=== PATIENT | male | born 1980 | race Caucasian/White ===

== ENCOUNTER → 2020-01-31 10:03 | Outpatient (CLI) | payer OTHER, SELFPAY ==
[2019-02-24 12:41] VITALS: BMI 29.5
== END ==
PROVIDERS: PCP Family Medicine; Referring Provider Physician Assistant; Visit Provider Physician Assistant
DX: Z20.828 Contact with and (suspected) exposure to other viral communicable diseases (principal)
CPT/HCPCS: 87635; C9803; U0003

== ENCOUNTER → 2020-02-24 | Outpatient (CLI) | payer OTHER, SELFPAY | END | disposition home or self-care (01) | LOC: LABSPEC 15:13 | PROVIDERS: PCP Family Medicine; Referring Provider Physician Assistant Surgical; Visit Provider Physician Assistant Surgical | DX: U07.1 COVID-19 (principal) | CPT/HCPCS: 87635; U0003 ==

== ENCOUNTER → 2020-05-29 07:14 | Outpatient (CLI) | payer OTHER, SELFPAY ==
[2020-05-29 10:18] LABS: Absolute Lymphocyte Count 1.45 X10^3/uL (0.83-4.51); Absolute Neutrophil Count 2.5 X10^3/uL (2.0-7.7); Basophil# 0.01 X10^3/uL; Basophil% 0.2 % (0-1); Eosinophil# 0.13 X10^3/uL; Eosinophils% 2.9 % (0-5); Hematocrit 42.6 % (40-54); Hemoglobin 13.6 g/dL (13.0-16.5); Lymphocyte # 1.45 X10^3/ul (4.0); Lymphocyte % 32.7 % (19-41); Mean Corp Hgb Conc 31.9 g/dL (32-36); Mean Corpuscular Hgb 29.8 pg (27.0-32.0); Mean Corpuscular Volume 93.4 fL (80-94); Mean Platelet Vol. 11.6 fl (6.2-12.0); Monocyte# 0.37 X10^3/uL; Monocyte% 8.3 % (0-10); NRBC Flagged by Analyzer 0 % (0-5); Neutrophil # 2.47 X10^3/uL (2.7-7.7); Neutrophil % 55.7 % (47-70); Platelet Count 236 K/mm3 (150-450); RBC Distribution Width CV 13.1 % (11.6-14.6); RBC Distribution Width SD 44.6 fl (35.1-43.9); Red Blood Count 4.56 M/mm3 (4.6-6.2); White Blood Count 4.4 K/mm3 (4.4-11.0)
[2020-05-29 10:52] LABS: ALB/GLOB Ratio 1.2 RATIO (0.9-2.4); AST(SGOT) 17 U/L (15-37); Alanine Aminotransfer ALT/SGPT 37 U/L (16-61); Alkaline Phosphatase 67 U/L (45-117); Anion Gap 5 (5-15); BUN 16 mg/dL (7-18); Calcium,Total 8.9 mg/dL (8.5-10.1); Chloride 107 mmol/L (98-107); Creatinine, Serum 0.94 mg/dL (0.70-1.30); EST Glomerular Filtration Rate 95 mL/min (>60); Est Glom Filt Rate - Afr Amer 115 mL/min (>60); Globulin 3.2 g/dL (2.2-4.2); Glucose 93 mg/dL (74-106); Potassium 4.5 mmol/L (3.5-5.1); Protein, Total 7.2 g/dL (6.4-8.2); Sodium Level 140 mmol/L (136-145)
[2020-05-29 11:07] LABS: T4 Free Direct 0.97 ng/dL (0.76-1.46); Thyroid Stim Hormone (TSH) 1.29 uIU/mL (0.358-3.74)
[2020-05-30 09:28] LABS: Thyroid Peroxidase AB < 9 IU/mL (0-34)
[2020-06-01 18:38] LABS: Thyroglobulin Antibody < 1.0 IU/mL (0.0-0.9)
== END ==
PROVIDERS: PCP Family Medicine; Referring Provider Family Medicine; Visit Provider Family Medicine
DX: E04.1 Nontoxic single thyroid nodule (principal)
CPT/HCPCS: 80053; 84439; 84443; 85025; 86376; 86800

== ENCOUNTER → 2020-05-29 09:59 | Outpatient (CLI) | payer OTHER, SELFPAY ==
[2019-02-24 12:41] VITALS: BMI 29.5
--- NOTE | 2020-05-29 10:01 | US_ITS ---
STUDY: THYROID ULTRASOUND REASON FOR EXAM: Male, 39 years old. Nodule TECHNIQUE: Ultrasound evaluation of the thyroid was performed with real-time and static worrell-scale imaging. COMPARISON: None. FINDINGS: RIGHT LOBE: The right lobe of the thyroid gland measures 4.7 x 2.0 x 1.5 cm. There is a homogeneous echotexture. There are no demonstrated solid, cystic or complex lesions. LEFT LOBE: The left lobe of the thyroid gland measures 4.5 x 2.0 x 1.3 cm. There is a homogeneous echotexture. Nodule 1:4 x 3 x 3 mm cystic anechoic wider than tall smoothly marginated nodule with a comet tail artifact (TR 1) consistent with a colloid cyst. ISTHMUS: The isthmus measures 3 mm thick. . The regional lymph nodes are normal. US/Thyroid IMPRESSION: Normal ultrasound examination of the thyroid. Electronically Signed: Kenneth Bynum MD at 10:02 EDT Tel , Service support ,
== END ==
PROVIDERS: PCP Family Medicine; Referring Provider Family Medicine; Visit Provider Family Medicine
DX: E04.1 Nontoxic single thyroid nodule (principal)
CPT/HCPCS: 76536

== ENCOUNTER 2020-11-28 19:25 | Emergency (ER) | payer OTHER, SELFPAY ==
[2020-11-28 19:26] VITALS: BP 132/81; PULSE 78; RESP 14; TEMP 35.6; O2SAT 100; BMI 27.3
--- NOTE | 2020-11-28 19:48 | EDS_ITS ---
HPI History of Present Illness Chief Complaint: Laceration Detail of Chief Complaint: Ration to left ring finger Informant: patient Narrative Narrative: Patient presents to the emergency department after sustaining a laceration to his left ring finger this evening. Patient states that he was using a butter knife to crush some ice in a plastic cup when the knife went through the cup and into his finger. Patient is right-hand dominant. Patient is unsure of his last tetanus shot. [facility] Medical History (Updated 11/28/20 @ 21:[address] Phoebe Hubbard, DO) Hay fever Pilonidal cyst Home Medications NK 02/24/20 [History Last Taken Unknown] Allergy/AdvReac Type Severity Reaction Status Date / Time Penicillins AdvReac Mild OTHER Verified 11/28/20 19:26 Social History (Updated 02/24/20 @ 12:15 by Paolo GOMEZ, JASON) Smoking Status: Never smoker alcohol intake: current ROS ROS ED Constitutional Constitutional ED: Reports systems reviewed and no addt'l complaints, except as documented; Denies body ache(s), change in weight or chills Eyes Eyes: Denies acute decrease in peripheral vision, change in vision, double vision or loss of vision ENT ENT ED: Reports none; Denies ear pain, lip swelling, loss taste/smell, neck pain, otalgia or sore throat Cardiovascular Cardiovascular: Reports none; Denies abdominal pain, chest pain with activity, leg edema, lightheadedness, palpitations, rapid heart rate or syncope Respiratory/Chest Respiratory/Chest: Reports none; Denies change in mental status, dry cough, dyspnea, hemoptysis, shortness of breath at rest or shortness of breath with exertion Gastrointestinal Gastrointestinal: Reports none; Denies abdominal pain, change in stool character, diarrhea, hematemesis, hematochezia, melena, rectal bleeding or vomiting Genitourinary Genitourinary ED: Reports none; Denies abdominal discomfort, anuria, dysuria, genital pain or polyuria Musculoskeletal Musculoskeletal: Reports none and other Details: Laceration to left ring finger ; Denies arthralgias, back pain, difficulty walking, extremity pain, muscle weakness or myalgias Integumentary Reports none; Denies abscess or rash Neurologic Neurologic: Reports none; Denies abnormal gait, confusion, focal weakness, frequent falls, headache(s), loss of vision, numbness, paresthesias, radicular pain, vertigo or weakness Psychiatric Psychiatric: Reports systems reviewed and no addt'l complaints, except as documented and none; Denies behavioral changes, confusion, difficulty concentrating, hallucinations, suicidal ideation, tactile hallucinations or visual hallucinations Endocrine Endocrinology: Denies none, cold intolerance, excessive sweating, fatigue or heat intolerance Hematologic/Lymphatic Hematologic/Lymphatic: Reports none; Denies anemia, easy bleeding or easy bruising Allergic/Immunologic Allergic/Immunologic ED: Denies as per HPI, none, lip swelling, mouth swelling, throat swelling, tongue swelling or hives EXAM Physical Exam Const Vital Signs: 11/28/20 19:26 Temperature 96.1 F L Temperature Source Temporal Pulse Rate 78 Respiratory Rate 14 Blood Pressure 132/81 H Blood Pressure Mean 98 Pulse Ox 100 Oxygen Delivery Method Room Air Positive well nourished and well developed General Appearance ED: well developed and NAD HEENT Reports TM's clear and moist mucous membranes normocephalic and atraumatic; Negative for trauma or tenderness Tympanic Membrane ED: Yes TM's clear Eyes PERRL and EOMs intact bilaterally General Eye ED: Negative for pale conjunctiva or scleral icterus Neck no lymphadenopathy, supple and no JVD General: Negative for tenderness Chest Wall inspection of chest normal and palpation of chest normal Chest: Negative for tenderness Resp normal respiratory effort and clear to auscultation bilaterally Effort and Inspection: Negative for respiratory distress or pain with movement Auscultation: Negative for rhonchi, wheezes or diminished lung sounds Cardio regular rate, regular rhythm, S1 normal heart sound, S2 normal heart sound and no murmurs Peripheral Pulses: pulses 2+ throughout GI normal to inspection, nondistended, normoactive bowel sounds, soft to palpation, non-tender, non-distended and no masses Back/Spine no CVA tenderness and no thoracic nor lumbar tenderness Extremity normal to inspection Extremity Narrative: Evaluation of the left ring finger reveals a 1 cm laceration over the dorsum of the PIP joint. Patient has normal flexion extension of the digit. Normal strength against resistance. Neurovascularly intact. General Extremety ED: Negative for edema General Extremity: Negative for edema Neuro oriented x3, CN's II-XII intact bilaterally, no sensory deficits noted and gait normal Sensorium / Orientation: awake, alert, oriented to person, oriented to place and oriented to time Motor Exam: strength 5/5 throughout and strength abnormal Psych mental status grossly normal Skin no rashes or lesions noted and no wounds PROC Procedures Lacerations Finger laceration: Length: 0.39 in Depth: Sub Q Shape: Linear Prep: Sterile Conditions and Shure-Clens Laceration repair: Lidocaine and Local Irrigated (ml): 50 Number of Sutures/Chelly: 2 Suture Information: Ethilon and Simple Discharge Plan Triage Chief Complaint: Laceration ED Provider: Phoebe Hubbard Dx/Rx/DC Orders Clinical Impression: Finger laceration Instructions: ED Laceration, Hand: All Closures Prescriptions: No Action NK RF: 0 Primary Care Provider: Jp Morley Referrals: Jp Morley MD [Primary Care Provider] - 10 Day for suture removal Disposition Disposition: Home, Self Care
[2020-11-28] MEDS: Diphth,Pertuss(Acell),Tet Vac 0.5 ML Vial IM (20:00)
[2020-11-28] MEDS: Lidocaine 1% (20 ml mdv) 20 ML Vial INFILT (20:01)
[2020-11-28 21:16] VITALS: BP 136/72; PULSE 69; RESP 15
== END 2020-11-28 21:17 | disposition home or self-care (01) ==
PROVIDERS: Emergency Provider Emergency Medicine; PCP Family Medicine
DX: S61.215A Laceration without foreign body of left ring finger without damage to nail, initial encounter (principal); W26.0XXA Contact with knife, initial encounter; Y93.89 Activity, other specified; Y92.9 Unspecified place or not applicable; Y99.9 Unspecified external cause status
CPT/HCPCS: 12001; 90471; 90715; 99283

== ENCOUNTER 2021-06-02 11:54 | Outpatient (CLI) | payer OTHER, SELFPAY ==
--- NOTE | 2021-06-02 11:57 | US_ITS ---
STUDY: THYROID ULTRASOUND REASON FOR EXAM: Male, 40 years old. THYROID NODULE TECHNIQUE: Ultrasound evaluation of the thyroid was performed with real-time and static worrell-scale imaging. COMPARISON: May 29, 2020 thyroid ultrasound. FINDINGS: RIGHT LOBE: The right lobe of the thyroid gland measures 4.6 x 1.6 x 1.8 cm. There is a homogeneous echotexture. There are no demonstrated solid, cystic or complex lesions. LEFT LOBE: The left lobe of the thyroid gland measures 4.5 x 1.7 x 1.6 cm. There is a homogeneous echotexture. There is a 3 x 3 x 3 mm small, hypoechoic nodule within the left side of the thyroid with a small calcification without significant vascularity. ISTHMUS: The isthmus measures . The regional lymph nodes are normal. US/Thyroid IMPRESSION: Stable left thyroid nodule likely benign. Recommend follow-up in 6-12 months to ensure stability. Electronically Signed: Heydi Hansen MD at 0:20 EDT ,
== END 2021-06-02 23:59 | disposition home or self-care (01) ==
LOC: US 11:55
PROVIDERS: PCP Family Medicine; Referring Provider Family Medicine; Visit Provider Family Medicine
DX: E04.1 Nontoxic single thyroid nodule (principal)
CPT/HCPCS: 76536

== ENCOUNTER → 2022-05-31 | Outpatient (CLI) | payer OTHER, SELFPAY ==
[2022-05-31 12:56] LABS: ALB/GLOB Ratio 1.2 RATIO (0.9-2.4); AST(SGOT) 17 U/L (15-37); Alanine Aminotransfer ALT/SGPT 32 U/L (16-61); Albumin, Serum 4.2 g/dL (3.2-5.0); Alkaline Phosphatase 66 U/L (45-117); Anion Gap 4 (5-15); BUN 18 mg/dL (7-18); BUN/Creat Ratio 18.6 RATIO (10-20); Calcium,Total 9.4 mg/dL (8.5-10.1); Chloride 106 mmol/L (98-107); Cholesterol 195 mg/dL (200); Creatinine, Serum 0.97 mg/dL (0.70-1.30); EST Glomerular Filtration Rate 91 mL/min (>60); Est Glom Filt Rate - Afr Amer 111 mL/min (>60); Globulin 3.5 g/dL (2.2-4.2); Glucose 100 mg/dL (74-106); High Density Lipoprotein 73 mg/dL; Potassium 5.1 mmol/L (3.5-5.1); Protein, Total 7.7 g/dL (6.4-8.2); Sodium Level 139 mmol/L (136-145); Thyroid Stim Hormone (TSH) 1.04 uIU/mL (0.358-3.74); Triglycerides 62 mg/dL; Very Low Density Lipoprotein 12 mg/dL (5-40)
== END | disposition home or self-care (01) ==
LOC: MFPLAB 09:18
PROVIDERS: PCP Family Medicine; Referring Provider Family Medicine; Visit Provider Family Medicine
DX: E04.1 Nontoxic single thyroid nodule (principal)
CPT/HCPCS: 36415; 80053; 80061; 84439; 84443

== ENCOUNTER → 2022-06-08 | Outpatient (CLI) | payer OTHER, SELFPAY ==
--- NOTE | 2022-06-08 16:56 | US_ITS ---
INDICATION: nodule- f/u EXAMINATION: Ultrasound US Thyroid (eg thyroid, parathyroid, parotid) TECHNIQUE: Hester scale and color doppler imaging was performed of the thyroid gland. COMPARISON: June 02, 2021, May 29, 2020. FINDINGS: RIGHT THYROID LOBE: 5.4 x 1.7 x 1.6 cm. Homogeneous echotexture with normal vascularity. [No thyroid nodules are present. LEFT THYROID LOBE: 4.5 x 1.8 x 1.5 cm. Homogeneous echotexture with normal vascularity. 5 x 3 x 3 mm mm lateral posterior mid thyroid cyst with hyperechoic inspissated colloid, TI-RAD 1, not significantly changed in size from May 29, 2020. [ ISTHMUS: 0.5 cm. No thyroid nodules are present. US/Thyroid IMPRESSION: Benign left thyroid colloid cyst without significant change from May 29 2020. No new or enlarging nodules. Diffuse thyromegaly. Electronically Signed: Roney Bernal MD at 18:43 EDT ,
== END | disposition home or self-care (01) ==
LOC: US 16:54
PROVIDERS: PCP Family Medicine; Referring Provider Family Medicine; Visit Provider Family Medicine
DX: E04.1 Nontoxic single thyroid nodule (principal)
CPT/HCPCS: 76536

== ENCOUNTER → 2023-06-07 | Outpatient (CLI) | payer OTHER, SELFPAY ==
[2023-06-07 10:42] LABS: Absolute Lymphocyte Count 1.45 X10^3/uL (0.83-4.51); Absolute Neutrophil Count 3.6 X10^3/uL (2.0-7.7); Basophil# 0.03 X10^3/uL; Basophil% 0.5 % (0-1); Eosinophil# 0.56 X10^3/uL; Eosinophils% 9.2 % (0-5); Hematocrit 42.7 % (40-54); Hemoglobin 14.5 g/dL (13.0-16.5); Lymphocyte # 1.45 X10^3/ul (0.83-4.51); Lymphocyte % 23.9 % (19-41); Mean Corpuscular Hgb 30.7 pg (27.0-32.0); Mean Corpuscular Volume 90.3 fL (80-94); Monocyte# 0.43 X10^3/uL; Monocyte% 7.1 % (0-10); NRBC Flagged by Analyzer 0 % (0-5); Neutrophil # 3.58 X10^3/uL (2.7-7.7); Neutrophil % 59.1 % (47-70); Platelet Count 249 K/mm3 (150-450); RBC Distribution Width CV 12.4 % (11.6-14.6); RBC Distribution Width SD 40.9 fl (35.1-43.9); Red Blood Count 4.73 M/mm3 (4.6-6.2); White Blood Count 6.1 K/mm3 (4.4-11.0)
[2023-06-07 11:30] LABS: ALB/GLOB Ratio 1.2 RATIO (0.9-2.4); AST(SGOT) 14 U/L (15-37); Alanine Aminotransfer ALT/SGPT 27 U/L (16-61); Albumin, Serum 4.1 g/dL (3.2-5.0); Alkaline Phosphatase 61 U/L (45-117); Anion Gap 3 (5-15); BUN 14 mg/dL (7-18); Calcium,Total 9.2 mg/dL (8.5-10.1); Chloride 108 mmol/L (98-107); Cholesterol 199 mg/dL (200); EST Glomerular Filtration Rate 88 mL/min (>60); Est Glom Filt Rate - Afr Amer 106 mL/min (>60); Globulin 3.5 g/dL (2.2-4.2); Glucose 94 mg/dL (74-106); High Density Lipoprotein 78 mg/dL; Potassium 4.6 mmol/L (3.5-5.1); Protein, Total 7.6 g/dL (6.4-8.2); Sodium Level 139 mmol/L (136-145); Thyroid Stim Hormone (TSH) 0.84 uIU/mL (0.358-3.74); Triglycerides 67 mg/dL; Very Low Density Lipoprotein 13 mg/dL (5-40)
== END | disposition home or self-care (01) ==
LOC: MFPLAB 08:57
PROVIDERS: PCP Family Medicine; Visit Provider Family Medicine
DX: E66.9 Obesity, unspecified (principal)
CPT/HCPCS: 36415; 80053; 80061; 84443; 85025

== ENCOUNTER 2023-09-05 13:00 | Outpatient (RCR) | payer OTHER, SELFPAY ==
--- NOTE | 2023-09-05 16:56 | HP.OTEVAL_ITS ---
Patient's Visit Information Visit Information Visit Information: PEDRITO MORRIS is a 42 year old M, referred to Occupational Therapy by Dr. Garry Mims MD, with a diagnosis of left fx of middle phalanx of left IF. Date of Evaluation: 09/05/23 Occupational Therapist: SCOTTY Alvraado/Jose, CHT Subjective Subjective: This 42 year old male was seen for OT eval with dx of left IF middle phalanx fx. pt states he fell when playing with his son outside. This happened on 08/13/23. pt states he went to get x ray on 08/14/23. Pt states he was in a splint to keep his finger straight so his finger was sore yesterday. Today better but still sore. pt would like a HEP to initiate ROM and guidelines on how healing process and return to normal use will go. Pain left IF: Current Pain Intensity: 0 Pain Intensity Range: 0 and 2 ROM MP: IF right 0/75 left 0/70 PIP: IF right 0/105 left 0/75 DIP: IF right 0/60 left 0/35 ROM Comments: pt demo with decrease in left IF ROM Strength Strength Comments: not test Edema PIP: right 6.5 left 7.0 Quick DASH-Disab of Arm,Shoulder& Hand Quick DASH Score: 5.0000 Goals Goal:ROM equal to unaffected hand: Yes Goal:No pain with affected hand use: Yes Goal:PIP Circumferences equal to unaffected hand: Yes Goal:Full use of affected hand in daily activities including work: Yes Rehabilitation General Assessment: pt demo with left IF limited ROM, swelling and newly healing structures. Pt demo need for skilled OT services to ed. on dx. and ROM ex. allowing for pt to initiate strengthening at 6 weeks s/p- pt to work on full ROM until then- use of beena tape with heavy work to avoid catching IF on stationary objects. As pt progresses was instructed if still limited with ROM at week 6 he can initiate PROM to get full composite flexion- therapist ed. pt that finger injuries do take time to heal and he will have swelling for 6 -9 months and will have some pain at end range of motion with tight fisting up to a year. Therapist advised with ex to not allow pain, to work in comfort ROM until he can actively reach full composite fist. pt demo understanding and agrees to HEP. Pt was given contact info of therapist if he has issues. pt agrees with one visit and HEP. Rehabilitation Potential: Excellent Anticipated Interventions Anticipated Interventions: A/AAROM/PROM, Joint Protection/Energy Conservation, Education re Diagnosis and Home Program Visit Plan TEXT: Thank you for the opportunity to evaluate your patient. For Medicare and Medicare HMO plans, please review the plan of care and approve it. It will need to be FAXED BACK to us at [phone] for Medicare purposes. Please let me know if there are questions or concerns regarding this plan of care. Physician Signature: Date:
--- NOTE | 2023-10-18 10:33 | HP.OT.NRP ---
Patient Information Patient Information: PEDRITO MORRIS was seen in my office for initial evaluation on 09/05/23. The following Plan of Care was established for this patient: Anticipated Interventions Anticipated Interventions: A/AAROM/PROM, Joint Protection/Energy Conservation, Education re Diagnosis and Home Program Last Seen Last Seen: This patient was last seen in our office 09/05/23. Pertinent comments regarding their Occupational therapy will appear below: Pt was seen for OT eval only. Has not scheduled further apts and due to time lapse in services pt is d/c at this time. At this point I will be discontinuing this patient from occupational therapy. I would be happy to see this patient again in the future if found appropriate by the physician. Thank you! Aleta Gomez, OTR/L, CHT
== END 2023-09-05 19:00 | disposition home or self-care (01) ==
LOC: OT 13:00
PROVIDERS: Referring Provider Orthopaedic Surgery Sports Medicine; Visit Provider Orthopaedic Surgery Sports Medicine
DX: S62.621D Displaced fracture of middle phalanx of left index finger, subsequent encounter for fracture with routine healing (principal)
CPT/HCPCS: 97166

== ENCOUNTER → 2024-07-03 | Outpatient (CLI) | payer OTHER, SELFPAY ==
[2024-07-03 11:23] LABS: ALB/GLOB Ratio 1.6 RATIO (0.9-2.4); AST(SGOT) 24 U/L (<=37); Alanine Aminotransfer ALT/SGPT 31 U/L (<=46); Albumin, Serum 4.4 g/dL (3.5-5.0); Alkaline Phosphatase 66 U/L (40-129); Anion Gap 11 (5-15); BUN 15 mg/dL (4-19); BUN/Creat Ratio 17.8 RATIO (10-20); Calcium,Total 9.2 mg/dL (7.6-11.0); Carbon Dioxide 23.7 mmol/L (21.0-32.0); Chloride 104 mmol/L (98-108); Cholesterol 233 mg/dL (<=200); Creatinine, Serum 0.85 mg/dL (0.70-1.20); EST Glomerular Filtration Rate 112 (>60); Globulin 2.8 g/dL (2.2-4.2); Glucose 102 mg/dL (70-99); High Density Lipoprotein 70 mg/dL; Low Density Lipoprotein Calc. 144 mg/dL; Potassium 4.2 mmol/L (3.3-5.1); Protein, Total 7.3 g/dL (5.9-8.4); Sodium Level 139 mmol/L (133-145); Total Bilirubin 0.93 mg/dL (0.00-1.30); Triglycerides 96 mg/dL; Very Low Density Lipoprotein 19 mg/dL (5-40); cholesterol:hdl ratio screen 3.35
== END | disposition home or self-care (01) ==
LOC: MFPLAB 08:47
PROVIDERS: PCP Family Medicine; Referring Provider Family Medicine; Visit Provider Family Medicine
DX: E66.9 Obesity, unspecified (principal)
CPT/HCPCS: 36415; 80053; 80061; 84443